=== PATIENT | male | born 1985 | race Caucasian/White ===

== ENCOUNTER 2016-09-09 17:23 | Emergency (ER) | payer OTHER | END 2016-09-09 18:14 | disposition home or self-care (01) | LOC: ER 17:23 | DX: R68.84 Jaw pain (principal); K08.409 Partial loss of teeth, unspecified cause, unspecified class; F17.210 Nicotine dependence, cigarettes, uncomplicated | CPT/HCPCS: 99282 ==

== ENCOUNTER 2016-09-21 13:21 | Emergency (ER) | payer OTHER | END 2016-09-21 16:07 | disposition home or self-care (01) | LOC: ER 13:21 | DX: S20.212A Contusion of left front wall of thorax, initial encounter (principal); W10.9XXA Fall (on) (from) unspecified stairs and steps, initial encounter; F17.210 Nicotine dependence, cigarettes, uncomplicated | CPT/HCPCS: 71250; 96372; 99283-25 ==